=== PATIENT | male | born 1985 | race Hispanic/Latino ===

== ENCOUNTER 2021-06-28 23:49 | Emergency (ER) | payer SELFPAY ==
[~2021-06-28] VITALS: Ht 170.2 cm; Wt 131.5 kg
[2021-06-29] MEDS ORDERED: MELO7.5T12 PO (00:54)
[2021-06-29] MEDS ORDERED: ACET1TAB25 PO (00:54)
[2021-06-29] MEDS ORDERED: HYDROCODONE/ACETAMINOPHEN 5/325 MG TAB PO ONE (01:00)
[2021-06-29] MEDS ORDERED: KETOROLAC 60 MG VIAL (30MG/ML) IM ONE (01:00)
[2021-06-29 01:06] VITALS: BP 139/88
== END 2021-06-29 01:20 | disposition home or self-care (01) ==
LOC: EDH 23:49
DX: S82.002A Unspecified fracture of left patella, initial encounter for closed fracture (principal); Z79.1 Long term (current) use of non-steroidal anti-inflammatories (NSAID); W01.0XXA Fall on same level from slipping, tripping and stumbling without subsequent striking against object, initial encounter; Y93.89 Activity, other specified; Y92.89 Other specified places as the place of occurrence of the external cause; Y99.8 Other external cause status
CPT/HCPCS: 29505; 73562; 96372; 99283; J1885

== ENCOUNTER 2021-08-14 14:03 | Emergency (ER) | payer SELFPAY ==
[~2021-08-14] VITALS: Ht 170.2 cm; Wt 131.5 kg
[~2021-08-14 14:03] MED LIST: ACET1TAB25 PO; MELO7.5T12 PO
[2021-08-14 14:09] VITALS: BP 140/81
[2021-08-14 14:24] LABS: BASOPHILS % (AUTO) 0.3 % (0.0-5.0); EOSINOPHILS % (AUTO) 0.3 % (0.0-8.0); HEMATOCRIT 45.9 % (42-54); LYMPHOCYTES % (AUTO) 12.1 % (21.0-51.0); MEAN CORPUSCULAR HEMOGLOBIN 28.8 pg (27.0-33.0); MEAN CORPUSCULAR VOLUME 84.8 fL (79-99); MONOCYTES % (AUTO) 7.8 % (3.0-13.0); PLATELET COUNT (AUTO) 206 K/uL (130-400); RED BLOOD CELL COUNT(AUTO) 5.41 MIL/uL (4.50-6.20); WHITE BLOOD COUNT (AUTO) 14.9 K/uL (4.8-10.8)
[2021-08-14 14:41] LABS: APPEARANCE,URINE Cloudy (CLEAR); BILIRUBIN,URINE Negative (NEGATIVE); COLOR,URINE Yellow (YELLOW); GLUCOSE, URINE (UA) Negative (NEGATIVE); KETONES,URINE Negative (NEGATIVE); LEUKOCYTE ESTERASE ,URINE Trace (NEGATIVE); NITRATE,URINE Negative (NEGATIVE); OCCULT BLOOD,URINE Large (NEGATIVE); PH,URINE 5.5 (5.0-8.0); PROTEIN,URINE Trace mg/dL (NEGATIVE)
[2021-08-14 14:42] LABS: CARBON DIOXIDE 26 mmol/L (21-32); CHLORIDE 101 mmol/L (101-111); CREATININE 0.9 mg/dL (0.5-1.5); GLOMERULAR FILTR. RATE CALC 103 mL/min (>60); GLUCOSE,RANDOM 94 mg/dL (70-105); POTASSIUM 4.3 mmol/L (3.5-5.1); SODIUM SERUM 135 mmol/L (136-145); UREA NITROGEN, BLOOD 12 mg/dL (7-18)
[2021-08-14] MEDS ORDERED: KETOROLAC 30MG VIAL (30MG/ML) ONE (14:45)
[2021-08-14] MEDS ORDERED: 0.9%NACL 1000ML 1,000 ML IV ONE ×2 (14:45→15:00)
[2021-08-14 14:47] LABS: ALANINE AMINOTRANSFERASE 43 U/L (12-78); ALBUMIN 3.9 g/dL (3.5-5.0); ASPARTATE AMINOTRANSFERASE 26 U/L (10-37); BILIRUBIN,TOTAL 0.4 mg/dL (0.2-1.0); CRP QUANTITATIVE < 2.00 mg/L (0.00-9.0); TOTAL PROTEIN, SERUM 7.6 g/dL (6.0-8.3)
[2021-08-14] MEDS ORDERED: KETOROLAC 30MG VIAL (30MG/ML) IV ONE (15:00)
[2021-08-14 15:13] LABS: BACTERIA,URINE Few /HPF (None Seen); MUCUS,URINE Few LPF (None Seen); RBC,URINE 51-100 /HPF (0-1); SQUAMOUS EPITHELIAL CELL,UR 0-2 /HPF (0-2)
[2021-08-14] MEDS ORDERED: CEFTRIAXONE 1G VIAL ONE (15:25)
[2021-08-14] MEDS ORDERED: CEFTRIAXONE 1G VIAL IVP ONE (15:30)
[2021-08-14] MEDS ORDERED: KETO10 PO (16:34)
[2021-08-14] MEDS ORDERED: CEPH500B PO (16:34)
[2021-08-14] MEDS ORDERED: ONDA4TAB10 PO (16:34)
[2021-08-14] MEDS ORDERED: TAMS-1 PO (16:34)
[2021-08-14] MEDS ORDERED: TAMSULOSIN HCL 0.4 MG CAP.ER.24H ONE (16:41)
[2021-08-14] MEDS ORDERED: TAMSULOSIN HCL 0.4 MG CAP.ER.24H PO SCH (17:00)
== END 2021-08-14 16:50 | disposition home or self-care (01) ==
LOC: EDH 14:03
DX: N20.0 Calculus of kidney (principal); K42.9 Umbilical hernia without obstruction or gangrene; Z79.1 Long term (current) use of non-steroidal anti-inflammatories (NSAID); Z79.899 Other long term (current) drug therapy
CPT/HCPCS: 36415; 74176; 80053; 81001; 83690; 85025; 86140; 96374; 96375; 99284; J0696; J1885; J7030